=== PATIENT | male | born 1980 | race Caucasian/White ===

== ENCOUNTER 2022-03-23 18:34 | Emergency (ER) | payer SELFPAY ==
[~2022-03-23] VITALS: Ht 180.3 cm; Wt 70.5 kg
[2022-03-23 18:51] VITALS: BP 161/97
--- NOTE | 2022-03-23 18:56 | PHYS DOC ---
Adult General Chief Complaint Chief Complaint: OTHER COMPLAINTS HPI HPI Patient is a 41-year-old male who presents to the emergency department wanting to know if he could be tested for rat poison. States that about 8 AM this morning one of his friends gave him something to smoke, and shortly after felt on and shaky. States he does methamphetamine but this felt different. Denies any other recent traumas, travels, illness, fevers, headache, lightheadedness, changes in vision, neck pain, pain or trouble swallowing, chest pain, shortness of breath, abdominal pain, nausea, vomiting, diarrhea. Denies any numbness/weakness/tingling. States he is eating and drinking normally. States he is making urine and stool normally. After talking with the patient, patient stated he was actually doing okay, wanted soda and wanted to be discharged. Review of Systems Review of Systems Review of systems otherwise unremarkable except noted in HPI Physical Exam Physical Exam Constitutional: Well developed, well nourished, no acute distress, non-toxic appearance. [] HENT: Normocephalic, atraumatic, bilateral external ears normal, oropharynx moist, no oral exudates, nose normal. [] Eyes: PERRLA, EOMI, conjunctiva normal, no discharge. [] Cardiovascular:Heart rate regular rhythm, no murmur [] Lungs & Thorax: Bilateral breath sounds clear to auscultation [] Abdomen: soft, no tenderness, no masses, no pulsatile masses. [] Skin: Warm, dry, no erythema, no rash. [] Extremities: No tenderness, no cyanosis, no clubbing, ROM intact, no edema. [] Neurologic: Alert and oriented X 3, normal motor function, normal sensory function, no focal deficits noted. [] Psychologic: Affect normal, judgment abnormal as using methamphetamines today, anxious but alert, cooperative EKG EKG [] Radiology/Procedures Radiology/Procedures [] Heart Score C/O Chest Pain: No Risk Factors: Risk Factors: DM, Current or recent (<one month) smoker, HTN, HLP, family hi story of CAD, obesity. Risk Scores: Risk Factors: DM, Current or recent (<one month) smoker, HTN, HLP, family history of CAD, obesity. Course & Med Decision Making Course & Med Decision Making Patient is a 41-year-old male, methamphetamine user comes to the emergency department with vague complaints and requests Vital signs nonconcerning. Physical exam noted above. Patient appears little anxious but otherwise appropriate, walking around the room and asking for soda. Offered some laboratory analysis and drugs of abuse testing but patient stated he was doing well, probably should be coming because he is okay and wanted to be discharged home Discussed with patient that he should probably stay away from any substances or medications not prescribed by a physician. Given community resource packet as he is new to [facility]. Gave strict return precautions to the ED. Patient grateful, verbalized understanding and agreed with plan of discharge. [] Dragon Disclaimer Dragon Disclaimer This electronic medical record was generated, in whole or in part, using a voice recognition dictation system. Departure Departure: Impression: Primary Impression: Ingested substance, unknown drug Disposition: HOME / SELF CARE / HOMELESS Condition: STABLE Referrals: PCP,JORJE (PCP) AGNES LAWLER MD Patient Instructions: Substance Abuse-Brief Additional Instructions: Thank you for coming into the emergency department tonight and allowing us to take care of you. Please read the attached information carefully to go over things we discussed. You are given a community resource packet with local free medical care, food assistance, clothing and some transportation and other things here in the community. Please establish care here in the community as we discussed as you are new to [facility] and set up a follow-up appointment to discuss your ED visit and further medical needs. Please stay away from any substances not prescribed by a physician as we discussed. Please come back immediately with any new or concerning symptoms as we discussed. LIZETTE VALENCIA MD March 23, 2022 18:56
== END 2022-03-23 19:10 | disposition home or self-care (01) ==
LOC: ER 18:34
DX: G25.2 Other specified forms of tremor (principal); T50.905A Adverse effect of unspecified drugs, medicaments and biological substances, initial encounter; Y92.89 Other specified places as the place of occurrence of the external cause
CPT/HCPCS: 99281